=== PATIENT | male | born 1945 | race Caucasian/White ===

== ENCOUNTER 2019-03-01 16:30 | Inpatient (IN) | payer MEDICARE, OTHER ==
[~2019-03-01] VITALS: Ht 167.6 cm; Wt 73.5 kg
[~2019-03-01 16:30] MED LIST: ASPIRIN E.C. 8181 MG PO; ATENOLOL25 MG PO; CARDURA 8MG TAB8 MG PO; FLOMAX 0.40.4 MG/CAP PO; HCTZ/LISINOPRIL1 TAB PO; TENORMIN 2525 MG/TAB PO; VITAMIN D 1001000 IU PO; ZESTRIL 10MG10 MG PO; ZOFRAN ODT4 MG PO
[2019-03-01 17:09] LABS: BASO # 0.1 (0.0-0.2); BASO % 0.5 % (0.0-2.0); EOS # 0.1 (0.0-0.7); EOS % 1.1 % (0-4.0); GRAN # 7.9 (1.4-6.5); GRAN % 80.7 % (42.2-75.2); HEMATOCRIT 42.1 % (42.0-52.0); HEMOGLOBIN 14.6 g/dl (13.5-18.0); LYMPH # 1.3 (1.2-3.4); LYMPH % 12.8 % (20.0-51.0); MEAN CELL VOLUME 86 fl (80.0-100.0); MEAN CORPUSCULAR HEMOGLOBIN 30 pg (27.0-31.0); MEAN CORPUSCULAR HGB CONC 35 g/dl (33.0-37.0); MEAN PLATELET VOLUME 11.1 fl (7.4-10.4); MONO # 0.5 (0.1-0.6); MONO % 4.7 % (1.7-9.3); PLATELET COUNT 170 K/mm3 (130-400); RED BLOOD COUNT 4.87 M/mm3 (4.20-5.60); REDCELL DISTRIBUTION WIDTH-CV 12.2 % (11.5-14.5)
[2019-03-01 17:23] LABS: ALANINE AMINOTRANSFERASE 25 U/L (21-72); ALBUMIN 4.8 gm/dL (3.5-5.0); ALKALINE PHOSPHATASE 75 U/L (50-136); ANION GAP 12 mmol/L (7-16); AST,SGOT 24 U/L (15-37); BILIRUBIN,TOTAL 0.8 mg/dL (0.0-1.0); BLOOD UREA NITROGEN 47 mg/dL (9-20); C-REACTIVE PROTEIN < 0.5 mg/dL (0.0-0.9); CALCIUM 10.2 mg/dL (8.4-10.2); CARBON DIOXIDE 24 mmol/L (22-30); CHLORIDE 103 mmol/L (98-107); CREATININE, serum 2.78 (0.66-1.25); GLUCOSE 122 mg/dL (74-106); LIPASE 257 U/L (23-300); POTASSIUM 4.2 mmol/L (3.4-5.0); SODIUM 139 mmol/L (137-145); TOTAL PROTEIN 8.4 gm/dL (6.4-8.2)
[2019-03-01 17:32] LABS: TROPONIN-I < 0.012 ng/mL (0.000-0.035)
[2019-03-01] MEDS ORDERED: PRINIVIL2.5 MG PO (19:35)
[2019-03-01] MEDS ORDERED: DICLOFENAC SOD2.5 ML TOP (19:36)
[2019-03-01 20:09] VITALS: BP 162/88; PULSE 83; TEMP 97.8
[2019-03-01 20:20] VITALS: BP 162/80; PULSE 83; TEMP 97.8
[2019-03-01 23:40] VITALS: BP 194/97; PULSE 82; TEMP 98.1
[2019-03-01 23:45] VITALS: BP 168/88
[2019-03-02 03:56] VITALS: BP 171/85; PULSE 84; TEMP 98
[2019-03-02 08:00] VITALS: BP 162/81; PULSE 75; TEMP 98.5
[2019-03-02 11:40] LABS: BASO % 0.3 % (0.0-2.0); EOS # 0.1 (0.0-0.7); EOS % 0.8 % (0-4.0); GRAN # 8.8 (1.4-6.5); GRAN % 82.4 % (42.2-75.2); HEMATOCRIT 37.4 % (42.0-52.0); HEMOGLOBIN 12.7 g/dl (13.5-18.0); LYMPH % 9.2 % (20.0-51.0); MEAN CELL VOLUME 89 fl (80.0-100.0); MEAN CORPUSCULAR HEMOGLOBIN 30 pg (27.0-31.0); MEAN CORPUSCULAR HGB CONC 34 g/dl (33.0-37.0); MEAN PLATELET VOLUME 10.8 fl (7.4-10.4); MONO # 0.7 (0.1-0.6); MONO % 6.9 % (1.7-9.3); PLATELET COUNT 151 K/mm3 (130-400); REDCELL DISTRIBUTION WIDTH-CV 12.5 % (11.5-14.5)
[2019-03-02 11:49] LABS: ALBUMIN 3.7 gm/dL (3.5-5.0); BILIRUBIN,TOTAL 0.7 mg/dL (0.0-1.0); CALCIUM 8.6 mg/dL (8.4-10.2); CREATININE, serum 2.51 (0.66-1.25); POTASSIUM 4.2 mmol/L (3.4-5.0); TOTAL PROTEIN 6.7 gm/dL (6.4-8.2)
[2019-03-02 12:30] VITALS: BP 164/87; PULSE 72; TEMP 98.7
[2019-03-02 16:00] VITALS: BP 162/95; PULSE 83; TEMP 98.4
[2019-03-02 19:11] VITALS: BP 169/87; PULSE 82; TEMP 99.4
[2019-03-03 00:14] VITALS: BP 166/81; PULSE 80; TEMP 98.9
[2019-03-03 04:00] VITALS: BP 158/90; PULSE 80; TEMP 98.1
[2019-03-03 07:03] LABS: ALBUMIN 3.6 gm/dL (3.5-5.0); BILIRUBIN,TOTAL 0.7 mg/dL (0.0-1.0); CALCIUM 8.6 mg/dL (8.4-10.2); CREATININE, serum 2.4 (0.66-1.25); POTASSIUM 4.4 mmol/L (3.4-5.0); TOTAL PROTEIN 6.6 gm/dL (6.4-8.2)
[2019-03-03 07:10] LABS: BASO % 0.4 % (0.0-2.0); EOS # 0.1 (0.0-0.7); EOS % 0.6 % (0-4.0); GRAN # 9.2 (1.4-6.5); GRAN % 83.8 % (42.2-75.2); HEMATOCRIT 38.2 % (42.0-52.0); HEMOGLOBIN 12.9 g/dl (13.5-18.0); LYMPH # 0.9 (1.2-3.4); LYMPH % 7.9 % (20.0-51.0); MEAN CELL VOLUME 90 fl (80.0-100.0); MEAN CORPUSCULAR HEMOGLOBIN 30 pg (27.0-31.0); MEAN CORPUSCULAR HGB CONC 34 g/dl (33.0-37.0); MEAN PLATELET VOLUME 11.3 fl (7.4-10.4); MONO # 0.8 (0.1-0.6); PLATELET COUNT 150 K/mm3 (130-400); RED BLOOD COUNT 4.24 M/mm3 (4.20-5.60); REDCELL DISTRIBUTION WIDTH-CV 12.3 % (11.5-14.5)
[2019-03-03 08:12] VITALS: BP 150/105; PULSE 139; TEMP 98
[2019-03-03 12:15] VITALS: BP 166/92; PULSE 81; TEMP 97.7
[2019-03-03 16:45] VITALS: BP 149/76; PULSE 72; TEMP 98.6
[2019-03-03 19:51] VITALS: BP 147/78; PULSE 66; TEMP 98.8
[2019-03-04 00:02] VITALS: BP 155/72; PULSE 60; TEMP 97.8
[2019-03-04 03:42] VITALS: BP 147/74; PULSE 56; TEMP 98
[2019-03-04 07:29] LABS: ALBUMIN 3.1 gm/dL (3.5-5.0); BILIRUBIN,TOTAL 0.6 mg/dL (0.0-1.0); CALCIUM 8.3 mg/dL (8.4-10.2); CREATININE, serum 2.37 (0.66-1.25); POTASSIUM 4.1 mmol/L (3.4-5.0)
[2019-03-04 07:41] LABS: BASO % 0.4 % (0.0-2.0); EOS # 0.3 (0.0-0.7); EOS % 3.7 % (0-4.0); GRAN # 5.3 (1.4-6.5); GRAN % 74.7 % (42.2-75.2); HEMOGLOBIN 11.4 g/dl (13.5-18.0); LYMPH # 0.9 (1.2-3.4); LYMPH % 12.9 % (20.0-51.0); MEAN CELL VOLUME 91 fl (80.0-100.0); MEAN CORPUSCULAR HEMOGLOBIN 30 pg (27.0-31.0); MEAN CORPUSCULAR HGB CONC 33 g/dl (33.0-37.0); MEAN PLATELET VOLUME 11.9 fl (7.4-10.4); MONO # 0.6 (0.1-0.6); MONO % 7.9 % (1.7-9.3); PLATELET COUNT 135 K/mm3 (130-400); RED BLOOD COUNT 3.77 M/mm3 (4.20-5.60); REDCELL DISTRIBUTION WIDTH-CV 12.2 % (11.5-14.5)
[2019-03-04 07:43] VITALS: BP 155/78; PULSE 57; TEMP 98.2
[2019-03-04 07:49] LABS: HEMATOCRIT 34.2 % (42.0-52.0)
[2019-03-04 11:42] VITALS: BP 169/73; PULSE 62; TEMP 98.8
[2019-03-04] MEDS ORDERED: TENORMIN 5050 MG/TAB PO (13:56)
== END 2019-03-04 14:45 | disposition home or self-care (01) | DRG 389 ==
LOC: COL.ER 16:30 → SURG 18:42
PROVIDERS: Emergency Medicine; ADMIT Surgery
DX: K56.600 Partial intestinal obstruction, unspecified as to cause (principal); I47.1 Supraventricular tachycardia; I12.9 Hypertensive chronic kidney disease with stage 1 through stage 4 chronic kidney disease, or unspecified chronic kidney disease; D63.1 Anemia in chronic kidney disease; D72.829 Elevated white blood cell count, unspecified; N18.9 Chronic kidney disease, unspecified; Z85.51 Personal history of malignant neoplasm of bladder; Z79.82 Long term (current) use of aspirin; Z87.891 Personal history of nicotine dependence
CPT/HCPCS: 99222; 99231-AI; 99232-AI; C9113; J0360; J1644; J2060; J2270; J2405; J2550; J7030